=== PATIENT | female | born 1940 | race Caucasian/White ===

== ENCOUNTER 2018-11-17 10:21 | Emergency (ER) | payer MEDICARE ==
[2018-11-17] MEDS ORDERED: FAMOTIDINE INJ/PF 20 MG/2 ML SDV IV ONE (10:48)
[2018-11-17] MEDS ORDERED: METHYLPREDNISOLONE INJ 125 MG/2 ML SDV IV ONE (10:48)
[2018-11-17] MEDS ORDERED: EPINEPHRINE INJ/PF 1 MG/1 ML AMPULE SUBCUT ONE (10:49)
--- NOTE | 2018-11-17 10:54 | ER Document Report ---
ED Medical Screen (RME) - General Chief Complaint: Allergic Reaction Stated Complaint: POSSIBLE ALLERGIC REACTION Time Seen by Provider: 11/17/18 10:48 Mode of Arrival: Ambulatory Information source: Patient Notes: 78-year-old female presented to ED for complaint of itching hives and now a swollen tongue on the right side of her tongue. She states she was itching this morning before she got into the car as she was driving she developed hives and then later on driving she noticed the right side of her tongue started swelling. 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 Patient is alert oriented respirations regular and unlabored at this time. There is no airway compromise at this time. She is able to speak in full sentences. The right side of her tongue is swollen. She states it feels like it is continuing to swell. She states she has never had this before. She states she is on no regular medicat ions. She states she is not eating anything different than her normal food. I have greeted and performed a rapid initial assessment of this patient. A comprehensive ED assessment and evaluation of the patient, analysis of test results and completion of medical decision making process will be conducted by an additional ED providers. Dictation of this chart was performed using voice recognition software; therefore, there may be some unintended grammatical errors. TRAVEL OUTSIDE OF THE [place] IN LAST 30 DAYS: No - Related Data Allergies/Adverse Reactions: No Known Allergies Allergy (Verified 11/17/18 10:24) Past Medical History - Social History Frequency of alcohol use: None Drug Abuse: None Renal/ Medical History: Denies: Hx Peritoneal Dialysis Physical Exam - Vital signs Vitals: Temp Pulse Resp BP Pulse Ox 97.6 F 78 17 166/80 H 98 11/17/18 10:11/17/18 10:11/17/18 10:11/17/18 10:11/17/18 10:28 Course - Vital Signs Vital signs: Temp Pulse Resp BP Pulse Ox 97.6 F 78 17 166/80 H 98 11/17/18 10:11/17/18 10:11/17/18 10:11/17/18 10:28 11/17/18 10:28
[2018-11-17 14:24] VITALS: BP 123/54
--- NOTE | 2018-11-17 14:29 | ER Document Report ---
ED General - General Chief Complaint: Allergic Reaction Stated Complaint: POSSIBLE ALLERGIC REACTION Time Seen by Provider: 11/17/18 10:48 Mode of Arrival: Ambulatory TRAVEL OUTSIDE OF THE [place] IN LAST 30 DAYS: No - HPI Notes: Patient is a 78-year-old female presents to the emergency department for evaluation. She stated her daughter last night. As a relieving she noticed she started having itching. During the course of her drive from [place] she has severe itching. It developed slowly. Over the course of her drive the patient's itching spread to her legs, back, her bra line. By the time she reached [place] she felt a swelling in the back of her tongue and felt as if she was having some difficulty swallowing. She has no history of anaphylaxis. She states that she stated her daughter's house for the week. Her laundry was done there, with a different detergent, but she denies any other new exposures. - Related Data Allergies/Adverse Reactions: Sulfa (Sulfonamide Antibiotics) Allergy (Verified 11/17/18 11:17) Past Medical History - General Information source: Patient - Social History Smoking Status: Former Smoker Frequency of alcohol use: None Drug Abuse: None Family History: Reviewed & Not Pertinent Patient has suicidal ideation: No Patient has homicidal ideation: No Renal/ Medical History: Denies: Hx Peritoneal Dialysis Review of Systems - Review of Systems Constitutional: No symptoms reported EENT: See HPI Cardiovascular: No symptoms reported Respiratory: No symptoms reported Gastrointestinal: No symptoms reported Genitourinary: No symptoms reported Musculoskeletal: No symptoms reported Skin: See HPI Neurological/Psychological: No symptoms reported Physical Exam - Vital signs Vitals: Temp Pulse Resp BP Pulse Ox 97.6 F 78 17 166/80 H 98 11/17/18 10:28 11/17/18 10:28 11/17/18 10:28 11/17/18 10:28 11/17/18 10:28 - Notes Notes: Vital signs reviewed, please refer to chart. Patient seen after administration of epinephrine and claims some improvement. [place]romucosa is moist. Tongue feels reveal any significant edema. No posterior pharyngeal edema or asymmetry. Head is normocephalic, atraumatic. Pupils equal round, reactive to light. Neck is supple without meningismus. Heart is regular rate and rhythm. Lungs are clear to auscultation bilaterally. Abdomen is soft, nontender, normoactive bowel sounds throughout. Extremities without cyanosis, clubbing. Posterior calves are nontender. Peripheral pulses are equal. Skin is warm and dry. She does have urticaria noted to the anterior and posterior torso, most concentrated in the bra line region. Patient is awake, alert, neurological exam is nonfocal. Course - Re-evaluation Re-evalutation: 11/17/18 14:30 To the emergency department for evaluation. She was initially seen through triage and appropriately administered epinephrine subcutaneously. She was further given steroids and Pepcid. She had taken Benadryl prior to arrival, total of 50 mill grams p.o. Over the course of her stay, her symptoms markedly improved. She had minimal itching. Only minutes after the epinephrine her perceived tongue swelling resolved. It did not rebound. She was monitored for several hours. The importance of carrying an epinephrine pen at all times was stressed to the patient. She voiced understanding to this. I also told her she needs to take her steroids as directed, starting tomorrow. [id number] antihistamines as needed for itching. It was explained to the patient that she should readminister the epinephrine at any time if she develops swelling or tingling in the back of her throat. She voiced understanding to this. She also knows that she needs to head to the emergency department after administration of this medication. Otherwise she is to return to the ED with worsening or new concerning symptoms. The patient had initially stated that she was going to try to go on to [place], her initial vacation destination. She states she believes she will be driving back to [place] to stay with her daughter for the night. - Vital Signs Vital signs: Temp Pulse Resp BP Pulse Ox 97.6 F 78 15 123/54 L 96 11/17/18 10:28 11/17/18 10:28 11/17/18 14:15 11/17/18 14:15 11/17/18 14:15 Discharge - Discharge Clinical Impression: Anaphylaxis, Urticaria Condition: Stable Disposition: HOME, SELF-CARE Instructions: Anaphylaxis Kit ([facility]) Additional Instructions: Carry your epinephrine pen with you at all times. If you develop swelling, tingling in the back your throat, difficulty swallowing or breathing, administered again and report to the nearest emergency department. Start your prednisone tomorrow. You can use [id number] antihistamines as needed for itching. Use Claritin or Zyrtec for nondrowsy treatment, Benadryl if your itching is more severe. Follow-up with your primary care physician within 1 week. Return to the emergency department with worsening or new concerning symptoms. Prescriptions: RX: Epinephrine 0.3 mg SQ ONCE PRN #1 auto.injct PRN Reason: RX: Prednisone [Deltasone 20 mg Tablet] See Protocol PO DAILY #20 tablet
== END 2018-11-17 14:50 | disposition home or self-care (01) ==
LOC: ER 10:21
DX: T78.2XXA Anaphylactic shock, unspecified, initial encounter (principal); L50.9 Urticaria, unspecified; Z88.2 Allergy status to sulfonamides; Z87.891 Personal history of nicotine dependence
CPT/HCPCS: 99284; 96372; 96374; 96375; J0171; J2930; S0028